=== PATIENT | male | born 1985 | race Two or more races ===

== ENCOUNTER 2018-08-23 21:59 | Emergency (ER) | payer SELFPAY ==
[~2018-08-23] VITALS: Ht 180.3 cm; Wt 68.0 kg
[2018-08-23] MEDS ORDERED: AMOXICILLIN125 MG ORAL (22:12)
[2018-08-23 22:25] VITALS: BP 135/72
--- NOTE | 2018-08-23 22:25 | NUR ---
ED Nurse Note: Pt arrived ED from home, c/o Burning and urgency when urinary for 2 days. pt is A/O X4. Vital signs stable at this time, waiting for orders.
--- NOTE | 2018-08-23 22:47 | Emergency Room Report ---
History of Present Illness General Chief Complaint: Male Urogenital Problems Source: Patient Present Illness HPI Is a 33-year-old female with no significant past medical history. He presents with chief complaint of abdominal pain with vomiting. He thinks that he may have urinary tract infection. He had sore throat and saw his doctor 2 weeks ago. Was given a 10 day course of antibiotics. He finished 8 days. 2 days ago he began having symptoms of abdominal cramps with fever and feeling nauseous. So he took the rest of antibiotics. The reason he did this because his girlfriend had similar symptom and was diagnosed with UTI. He denies any dysuria frequency or urgency. No diarrhea. Vomiting is better. Subjective fever at home. Allergies: Coded Allergies: No Known Allergies (Unverified , 08/23/18) Patient History Past Medical History: none, see triage record, old chart reviewed Past Surgical History: none Pertinent Family History: none Social History: Denies: smoking Immunizations: other Reviewed Nursing Documentation: PMH: Agreed; PSxH: Agreed Nursing Documentation-PM Past Medical History: No Stated History Review of Systems Constitutional: Reports: fever Eye: Denies: eye pain, blurred vision ENT: Denies: ear pain, nose congestion, throat swelling Respiratory: Denies: cough, shortness of breath Cardiovascular: Denies: chest pain, palpitations Gastrointestinal: Reports: abdominal pain, nausea, vomiting; Denies: diarrhea Musculoskeletal: Denies: back pain, joint pain Skin: Denies: rash Neurological: Denies: headache, numbness Endocrine: Denies: increased thirst, increased urine Hematologic/Lymphatic: Denies: easy bruising All Other Systems: negative except mentioned in HPI Physical Exam Vital Signs Date Time Temp Pulse Resp B/P (MAP) Pulse Ox O2 Delivery O2 Flow Rate FiO2 08/23/18 22:08 98.4 89 12 136/73 94 vitals normal Sp02 EP Interpretation: reviewed, normal General Appearance: well appearing, no apparent distress, alert Head: normocephalic, atraumatic Eyes: bilateral eye PERRL, bilateral eye EOMI ENT: hearing grossly normal, normal pharynx Neck: full range of motion, supple, no meningismus Respiratory: chest non-tender, lungs clear, normal breath sounds Cardiovascular #1: regular rate, rhythm, no murmur Gastrointestinal: normal bowel sounds, non tender, no mass, no organomegaly, no bruit, non-distended Musculoskeletal: back normal, gait/station normal, normal range of motion Psychiatric: mood/affect normal Skin: warm/dry Medical Decision Making Diagnostic Impression: Primary Impression: Nausea & vomiting Qualified Codes: R11.2 - Nausea with vomiting, unspecified ER Course Patient presents with nausea and vomiting and abdominal pain. Abdominal exam is benign. This is probably an early viral gastroenteritis. He doesn't have vomiting anymore. Only mild nausea. No evidence of a urinary tract infection. We'll discharge home. Told patient to increase fluids and if symptom worsen follow-up within 24 hours for recheck. Last Vital Signs Date Time Temp Pulse Resp B/P (MAP) Pulse Ox O2 Delivery O2 Flow Rate FiO2 08/23/18 22:08 98.4 89 12 136/73 94 Status: unchanged Disposition: HOME, SELF-CARE Condition: Stable Scripts Ondansetron (Zofran) 4 Mg Tablet 4 MG ORAL Q6H PRN for Nausea & Vomiting, #10 TAB 0 Refills Prov: Cam Villatoro MD 08/23/18 Additional Instructions: Increase fluids. Follow-up with your doctor in 7 days. Return if worse. Cam Villatoro MD Aug 23, 2018 22:47
--- NOTE | 2018-08-23 23:16 | NUR ---
ED Nurse Note: Meds given as ordered.
[2018-08-23 23:20] LABS: APPEARANCE,URINE CLEAR; BILIRUBIN, URINE NEGATIVE (NEGATIVE); GLUCOSE, URINE (UA) NEGATIVE (NEGATIVE); KETONES,URINE 2+ (NEGATIVE); LEUKOCYTE ESTERASE ,URINE 1+ (NEGATIVE); NITRITE,URINE NEGATIVE (NEGATIVE); PH,URINE 5 (4.5-8.0); PROTEIN,URINE 1+ (NEGATIVE); UROBILINOGEN,URINE 1 MG/DL (0.0-1.0)
[2018-08-23 23:29] LABS: COLOR,URINE YELLOW
[2018-08-23] MEDS ORDERED: ZOFRAN4 MG ORAL (23:37)
[2018-08-23 23:43] VITALS: BP 135/72
--- NOTE | 2018-08-23 23:43 | NUR ---
ER DISCHARGE NOTE: Patient is cleared to be discharged per Dr. Villatoro. Pt is aox4 on room air with stable vital signs. Pt was given dc and prescription instructions and was able to verbalize understanding. Pt's ID band removed. pt is d/c from ED with steady gait, accompanied by his family.
== END 2018-08-23 23:43 | disposition home or self-care (01) ==
LOC: EMR 22:14
DX: R11.2 Nausea with vomiting, unspecified (principal); R10.9 Unspecified abdominal pain
CPT/HCPCS: 81003; 99282